=== PATIENT | female | born 1960 | race Caucasian/White ===

== ENCOUNTER 2018-06-06 20:17 | Emergency (ER) | payer SELFPAY ==
[~2018-06-06] VITALS: Ht 170.2 cm; Wt 61.7 kg
[~2018-06-06 20:17] MED LIST: METF500T PO
--- NOTE | 2018-06-06 20:35 | NUR ---
Pt ambulated into ER with stable gait with the c/o chills, generalized body ache and cough x 5 days. Pt states that she has had nausea and diarrhea x 3 days and chest wall pain with cough. Respirations even and unlabored. VSS. Safe environment implemented.
[2018-06-06 21:02] LABS: BASOPHILS % (AUTO) 0.5 % (0.0-2.0); EOSINOPHILS # (AUTO) 0.1 K/uL (0.0-0.7); EOSINOPHILS % (AUTO) 1.1 % (0.0-7.0); HEMOGLOBIN 12.5 g/dL (10.9-14.3); LYMPHOCYTES # (AUTO) 2.7 K/uL (20.0-40.0); LYMPHOCYTES % (AUTO) 55.9 % (20.5-51.5); MEAN CORPUSCULAR HEMOGLOBIN 28.5 uug (24.7-32.8); MEAN CORPUSCULAR HGB CONC 34 g/dL (32.3-35.6); MEAN CORPUSCULAR VOLUME 84.5 fL (75.5-95.3); MONOCYTES # (AUTO) 0.4 K/uL (2.0-10.0); MONOCYTES % (AUTO) 7.5 % (0.0-11.0); NEUTROPHILS # (AUTO) 1.7 K/uL (1.8-8.9); PLATELET COUNT (AUTO) 225 K/uL (179-408); RED BLOOD CELL COUNT(AUTO) 4.38 MIL/uL (3.63-4.92); WHITE BLOOD COUNT (AUTO) 4.8 K/uL (3.8-11.8)
[2018-06-06 21:14] LABS: CREATININE 0.8 mg/dL (0.6-1.3); POTASSIUM 3.9 mmol/L (3.5-5.1)
--- NOTE | 2018-06-06 21:15 | NUR ---
Call to Dr. Hinton (PCP) made and left a voicemail. Awaiting response at this time.
[2018-06-06 21:26] LABS: BILIRUBIN,DIRECT 0.1 mg/dL (0.0-0.2); BILIRUBIN,TOTAL 0.2 mg/dL (0.2-1.0); TOTAL PROTEIN, SERUM 7.6 g/dL (6.4-8.2)
--- NOTE | 2018-06-06 22:01 | NUR ---
Dr. Reed at bedside for update
[2018-06-06] MEDS ORDERED: predniSONE 10 MG TABLET ONE (22:06)
[2018-06-06] MEDS ORDERED: predniSONE 50 MG TABLET ONE (22:06)
[2018-06-06] MEDS ORDERED: ACETAMINOPHEN ES 500 MG TABLET ONE (22:09)
[2018-06-06] MEDS ORDERED: ACETAMINOPHEN ES 500 MG TABLET PO ONE (22:15)
[2018-06-06] MEDS ORDERED: predniSONE 20 MG TABLET PO ONE (22:15)
--- NOTE | 2018-06-06 22:18 | NUR ---
Patient discharged to home in stable conditon. Written and verbal after care instructions given. Patient verbalizes understanding of instructions. Patient ambulated out of ER with stable gait and all belongings taken.
[2018-06-06 22:21] VITALS: BP 115/80
== END 2018-06-06 22:21 | disposition home or self-care (01) ==
LOC: ER 20:19
DX: J20.9 Acute bronchitis, unspecified (principal); E11.9 Type 2 diabetes mellitus without complications; R11.0 Nausea; R19.7 Diarrhea, unspecified; Z88.0 Allergy status to penicillin; Z79.899 Other long term (current) drug therapy
CPT/HCPCS: 36415; 71045; 80048; 80076; 83880; 84484; 85025; 87400; 99284; J7512 ×2; 70030-TC; A4663; A9150